=== PATIENT | female | born 1970 | race Caucasian/White ===

== ENCOUNTER 2024-12-22 08:54 | Outpatient (POV) | payer OTHER, SELFPAY ==
[2024-12-22 08:59] VITALS: BP 150/101; PULSE 77; RESP 18; O2SAT 99; BMI 24.2
--- NOTE | 2024-12-22 10:02 | A.OFFVIS_ITS ---
HPI Data of Consult Patient: new to practice Consult date: 12/22/24 Requesting Physician: Allyn Hernandez APRN Primary Care Provider: Musa Lange MD Consult Narrative Reason for consult: Low back pain, left hip pain, left knee pain History of present illness: Ms. MALAVE is a 54 year old female who presents today as a new patient. She is a referral from [facility]. Today she rates her pain a 5 out of 10. She states that all of this really started around June 2024 where she tweaked her back at work. She states that the pain was severe and that it was throughout her low back along the left side radiating down her left hip and down into her left knee. Patient states the pain was constant and severe enough it would wake her up in the middle of the night and she could not lay flat on her back. Patient states that she did try oral medications, heat and ice and topicals with minimal relief. She went to physical therapy and chiropractor therapy however both of these caused worsening symptoms. She was then seen by neurosurgery who was not recommending surgical intervention however did want conservative treatment such as injections. Patient states that she has not had any back surgery or issues before this injury. She states that she has never had any problems with her left knee either. She states that it is a aching, throbbing sensation with numbness and tingling into and below her left knee. She states the pain interferes with her ability perform activities of daily living such as cooking and cleaning. Patient is very active and would like any help we may be able to provide. She states that the neurosurgeon did prescribe her meloxicam and gabapentin and that has helped some. Patient states in the past she has had a right wrist injection but denies ever trying any back injections. Her Nicolas has been reviewed and is appropriate. CC: Allyn Hernandez APRN [facility] Disclaimer: The information contained in this section may have been updated after the patient was seen, as this information can be updated by other users. Medical History (Updated 12/22/24 @ 10:11 by Allyn Hernandez APRN) Carpal tunnel syndrome BRIANA (obstructive sleep apnea) HLD (hyperlipidemia) Migraines Left ventricular hypertrophy Hypersomnia HTN (hypertension) Depression Anxiety Surgical History (Updated 12/22/24 @ 09:50 by Sofia Andujar RN) [place] teeth extracted Hx of tonsillectomy Family History (Updated 12/22/24 @ 09:48 by Sofia Andujar RN) Other Unknown family medical history Social History (Updated 12/22/24 @ 09:59 by Sofia Andujar, RN) Smoking Status: Never smoker alcohol intake: never current occupational status: employed Travel in the last 8 weeks: None Contact w/someone who lives/traveled outside [place] past 30 days?: No Exposure to someone with infectious disease in past 14 days?: No Do you have a fever (greater than 100.4 F or 38 C)?: No Have you tested positive for COVID-19: No Exposed to someone with COVID-19 in past 14 days?: No Do you have a sore throat?: No Do you have a cough?: No Do you have any weakness?: No Are you experiencing any nausea/vomitting?: No Do you have any diarrhea?: No Are you experiencing any unusual bleeding?: No Do you have any muscle aches/pain?: No Do you have any abdominal pain?: No Are you experiencing loss of taste or smell?: No Review of Systems Review of Systems Review of systems:: pertinent systems reviewed and negative unless documented below Review of systems (narrative): Review of Systems: General: No recent weight changes, no fever, no sleep disturbances Respiratory: No cough, no shortness of air, no recurring pulmonary infections Cardiovascular/peripheral vascular: No chest pain, no palpitations, no edema, no shortness of breath Gastrointestinal: No new onset incontinence, normal bowel movements reported Genitourinary: No new onset incontinence Musculoskeletal: Low back pain, left hip pain, left knee pain Psychiatric: [Normal mood/affect] Neurological: [Denies weakness in extremities], [denies balance issues] Meds Home Medications and Allergies New Prescriptions to Start Prescriptions: Objective Narrative: Physical Exam: General: Alert and oriented x3, no acute distress, pleasant and cooperative Lungs: Respirations even and unlabored, symmetrical chest expansion Eyes: PERRL Musculoskeletal: Flexion and extension of lumbar [spine] somewhat guarded secondary to pain, [antalgic gait noted] positive left leg raise, decreased sensation to the left lower extremity and decreased reflexes Neurological: Speech clear, no gross sensory deficit Additional findings Additional findings: [facility] an open MRI November 23, 2024 Lumbar MRI Findings: Numbering assumes 5 lumbar type vertebral bodies, last fully formed disc space on series 8001 image 28 is labeled L5-S1. Cord and epidural space: Spinal cord terminates at L1 and has normal signal. Nerve roots of the cauda equina are normal in morphology. Vertebral column: Localized sequences suggest a shallow convex right lower curve. There is straightening of the usual lumbar lordosis. Vertebral body and facet alignment is anatomic. Vertebral heights are maintained. No concerning marrow signal. Multilevel disc desiccation T12-L1: Maintained disc height without herniation or bulge. No narrowing. Mild to moderate facet arthrosis L1-L2: Moderate disc height loss and asymmetric left disc bulge results in mild bilateral foraminal stenosis. No significant canal stenosis. Mild facet arthrosis L2-L3: Moderate disc height loss and asymmetric left disc osteophyte complex results in mild right and moderate left foraminal stenosis. No significant canal stenosis. Mild facet arthrosis L3-L4: Moderate disc height loss and asymmetric left disc osteophyte complex with superimposed left subarticular disc protrusion contributes to left lateral recess narrowing with contact and posterior displacement of the descending left L4 nerve root, there is mild right and mild-moderate left foraminal stenosis. No canal stenosis. Mild facet arthrosis. L4-L5: Moderate disc height loss and asymmetric right disc osteophyte complex with superimposed caudally migrated right subarticular disc extrusion to the L5 pedicular level with contact of the descending right L5 nerve root and moderate right and mild left foraminal stenosis, but no significant spinal canal stenosis. Mild to moderate facet arthrosis. There is superimposed left subarticular disc protrusion with contact, however no displacement of the descending left nerve root L5-S1: Moderate disc height loss and symmetric disc osteophyte complex results in moderate bilateral foraminal stenosis with no significant spinal canal stenosis. Mild to moderate facet arthrosis. mild chronic and symmetric paraspinal muscle trophy. Visualized paravertebral and retroperitoneal soft tissue structures are within normal limits Assessment and Plan *Assessment and plan (1) Degenerative disc disease: Status: Acute Category: Medical (2) Lumbar radiculopathy: Status: Acute Category: Medical Code(s): M54.16 - Radiculopathy, lumbar region (3) Left leg pain: Status: Acute Category: Medical Code(s): M79.605 - Pain in left leg (4) Lumbar nerve root impingement: Status: Acute Category: Medical Code(s): M54.16 - Radiculopathy, lumbar region Plan Patient is experiencing worsening pain in her low back with numbness and tingling into her left lower leg. Patient did have limited range of motion of her lumbar spine with a positive leg raise with decreased sensation and decreased reflexes along the left side. I did discuss with patient that I do believe they would benefit from a left transforaminal epidural steroid injection. Risk and benefits were discussed with patient and the patient would like to proceed forward with this plan of care. Patient is not on any blood thinners. Patient has tried and failed conservative therapy including continued at home stretching exercise for longer than 12 weeks. Patient has not ever had any injections in her low back in the past. Patient has been to physical therapy and chiropractor therapy. I will order the patient a compounded cream and send in a 2-week dose of baclofen 5 mg 3 times daily as well as schedule her for a left transforaminal epidural steroid injection L3-L4 and L4-L5 under fluoroscopy. Patient does have nerve root impingement at both of these levels. Patient has been instructed to contact the clinic with any concerns before the next appointment. Dr. Gomez has reviewed this note and agrees with this plan of care. This note was dictated using voice recognition software and make contain errors or omissions. All injections are used with Lidocaine, Bupivacaine and Depo Medrol. Occasionally urine drug screen is needed to verify patient's compliance with our office pain contract. This is ordered based off specific treatments related to chronic pain with the potential to abuse certain medications.
== END 2024-12-22 23:59 | disposition home or self-care (01) ==
PROVIDERS: PCP Pediatrics; Visit Provider Nurse Practitioner Family
DX: M51.16 Intervertebral disc disorders with radiculopathy, lumbar region (principal); M79.605 Pain in left leg; Z73.89 Other problems related to life management difficulty
CPT/HCPCS: 99202; G0463

== ENCOUNTER 2025-01-10 14:13 | Day surgery (SDC) | payer OTHER, SELFPAY ==
[2025-01-10 14:24] VITALS: BP 144/94; PULSE 74; RESP 16; TEMP 36.8; O2SAT 98; BMI 24.2
--- NOTE | 2025-01-10 14:46 | EXP.PAIN.PRO ---
Procedure Date: 01/10/25 Time: 14:45 Anesthesiologist:: Marcos Nava CRNA Complications:: None Pre-procedure Diagnosis:: Degenerative disc lumbar spine multilevels. Lumbar radiculopathy. Lumbar disc bulge L3-4, L4-5 Post-procedure Diagnosis:: Same. Indications for Procedure:: Patient is a very pleasant 54-year-old female who comes our clinic today for a left L3-4 and L4-5 transforaminal epidural steroid injection. Patient describes left hip and leg pain as constant, dull, aching. Pain is worse in the mornings. Patient states by the afternoon it seems to work itself out. Also, patient states it has been better since starting gabapentin. Procedure Details:: Details of the procedure explained to the patient. The patient was taken to procedure room placed in the prone position. The area over the lumbar spine was cleansed using chlorhexidine as a cleansing solution. Using fluoroscopy guidance markers were placed over the left border of the L3-4, L4-5 vertebral body. At each marker the skin and subcutaneous tissue was anesthetized using 1% lidocaine and a 25-gauge needle. At this time using fluoroscopy guidance 3 and half inch 22-gauge spinal needle was used to access the upper one third of the L3-4 and L4-5 foramen. Using fluoroscopy guidance in the lateral position needle position was confirmed using 0.5 mL of contrast dye. Good spread was noted in the epidural space at each level. After negative aspiration 2 mL of 1% lidocaine and 40 mg of Depo-Medrol was injected at each level. Patient tolerated procedure without difficulty. There are no complications. Plan and Disposition:: Patient was discharged without incident.
[2025-01-10 14:54] VITALS: BP 138/97; PULSE 65; RESP 16; TEMP 36.8; O2SAT 99
[2025-01-10 15:25] VITALS: BP 145/87; PULSE 69; RESP 18; O2SAT 94
[2025-01-10] MEDS: methylPREDNISolone ACETATE 80MG/ML VIAL 80 MG (15:25)
[2025-01-10 15:26] VITALS: BP 145/87; PULSE 69; RESP 18; O2SAT 94
== END 2025-01-10 14:54 | disposition home or self-care (01) ==
PROVIDERS: PCP Pediatrics; Visit Provider Nurse Anesthetist, Certified Registered
DX: M51.16 Intervertebral disc disorders with radiculopathy, lumbar region (principal)
CPT/HCPCS: 64483; 64484; J1010

== ENCOUNTER 2025-01-26 14:44 | Outpatient (POV) | payer OTHER, SELFPAY ==
--- NOTE | 2025-01-26 14:53 | A.OFFVIS_ITS ---
[facility] Disclaimer: The information contained in this section may have been updated after the patient was seen, as this information can be updated by other users. Medical History Carpal tunnel syndrome BRIANA (obstructive sleep apnea) HLD (hyperlipidemia) Migraines Left ventricular hypertrophy Hypersomnia HTN (hypertension) Depression Anxiety Surgical History [place] teeth extracted Hx of tonsillectomy Family History Other Unknown family medical history Social History Smoking Status: Never smoker alcohol intake: never current occupational status: employed Travel in the last 8 weeks: None PM Subjective & Objective Subjective Subjective:: Patient is a pleasant 54-year-old female who presents today for follow-up of left L3-L4 and L4-L5 transforaminal epidural on 01/10/2025. Today she rates her pain a 0 out of 10. She states that she really did not feel like she noticed a huge difference with her pain. Patient states her pain is all relatively in the morning and does ease down by the afternoons. Patient was being prescribed meloxicam and gabapentin from outside providers. She does state that she no longer has any more of the meloxicam but that she typically would take it at night along with her gabapentin and that she frequently felt like she still had significant pain in the morning. At our last visit we did prescribe baclofen however she states that she felt like she had the worst hot flashes ever and discontinued this. Patient did get the compounded cream however states that she always forgets to try it so really has not been able to see if it does improve any of her symptoms. She denies any other changes. Her Nicolas has been r eviewed and is appropriate. Review of Systems: General: No recent weight changes, no fever, no sleep disturbances Respiratory: No cough, no shortness of air, no recurring pulmonary infections Cardiovascular/peripheral vascular: No chest pain, no palpitations, no edema, no shortness of breath Gastrointestinal: No new onset incontinence, normal bowel movements reported Genitourinary: No new onset incontinence Musculoskeletal: Low back pain, left leg pain Psychiatric: [Normal mood/affect] Neurological: [Denies weakness in extremities], [denies balance issues] Pain at rest (0-10 scale): 0 Objective Objective:: Physical Exam: General: Alert and oriented x3, no acute distress, pleasant and cooperative Lungs: Respirations even and unlabored, symmetrical chest expansion Eyes: PERRL Musculoskeletal: Flexion and extension of lumbar [spine] somewhat guarded secondary to pain, [antalgic gait noted] Neurological: Speech clear, no gross sensory deficit Has patient had previous pain injection?: Yes Percent improvement in pain since last injection: Minimal Conservative treatment options previously tried: Home exercise plan Length of treatment: Longer than 12 weeks Meds Home Medications and Allergies Home Medications ?Medication ?Instructions ?Recorded ?Confirmed ?Type gabapentin 300 mg tablet 300 mg PO TID 12/22/24 01/10/25 History losartan 50 mg-hydrochlorothiazide 1 tab PO DAILY 12/22/24 01/10/25 History 12.5 mg tablet meloxicam 15 mg tablet 15 mg PO DAILY 12/22/24 01/10/25 History sumatriptan succinate 100 mg 100 mg PO Q2H PRN MIGRAINES 12/22/24 01/10/25 History tablet (Imitrex) New Prescriptions to Start Prescriptions: Allergies Allergy/AdvReac Type Severity Reaction Status Date / Time amoxicillin Allergy Unknown Verified 01/10/25 14:34 allergy reaction Assessment and Plan *Assessment and plan (1) Lumbar nerve root impingement: Status: Acute Category: Medical Code(s): M54.16 - Radiculopathy, lumbar region (2) Left leg pain: Status: Acute Category: Medical Code(s): M79.605 - Pain in left leg (3) Lumbar radiculopathy: Status: Acute Category: Medical Code(s): M54.16 - Radiculopathy, lumbar region (4) Degenerative disc disease: Status: Acute Category: Medical Plan I did discuss with the patient that I will send in a refill of her meloxicam. I did discuss with her that it may be more beneficial to take this first thing when she wakes up and see if this does help with her overall pain and stiffness. Patient did state in the past she has gotten improvement with acupuncture. I will order physical therapy evaluation and treatments of her low back and left leg symptoms specifically with the addition of acupuncture. Patient will return to clinic in 1 month. Patient did deny any heart or kidney issues. She states that at 1 point she did have something on an EKG that they ended up sending her to a licensed final expense agents for and the echo was all normal and she has never had to go b ack. Patient was counseled to discontinue all other NSAIDs while taking the meloxicam and to take it with food to minimize GI upset. Patient acknowledges understanding. Patient has been instructed to contact the clinic with any concerns before the next appointment. Dr. Gomez has reviewed this note and agrees with this plan of care. This note was dictated using voice recognition software and make contain errors or omissions. All injections are used with Lidocaine, Bupivacaine and Depo Medrol. Occasionally urine drug screen is needed to verify patient's compliance with our office pain contract. This is ordered based off specific treatments related to chronic pain with the potential to abuse certain medications.
[2025-01-26 15:32] VITALS: BP 135/85; PULSE 80; RESP 16; O2SAT 97; BMI 24.2
== END 2025-01-26 23:59 | disposition home or self-care (01) ==
PROVIDERS: PCP Pediatrics; Visit Provider Nurse Practitioner Family
DX: M54.16 Radiculopathy, lumbar region (principal); M79.605 Pain in left leg
CPT/HCPCS: 99212; G0463

== ENCOUNTER 2025-02-06 15:59 | Outpatient (RCR) | payer OTHER, SELFPAY | END 2025-02-06 23:59 | disposition home or self-care (01) | LOC: PT 15:59 | PROVIDERS: PCP Pediatrics; Visit Provider Nurse Practitioner Family | DX: M54.16 Radiculopathy, lumbar region (principal); M79.605 Pain in left leg | CPT/HCPCS: 97110; 97163 ==

== ENCOUNTER 2025-02-22 14:53 | Outpatient (POV) | payer OTHER, SELFPAY ==
[2025-02-22 15:18] VITALS: BP 134/74; PULSE 70; RESP 14; O2SAT 99; BMI 24.2
--- NOTE | 2025-02-22 15:18 | EXP.PAIN.SOA ---
[facility] Disclaimer: The information contained in this section may have been updated after the patient was seen, as this information can be updated by other users. Medical History Carpal tunnel syndrome BRIANA (obstructive sleep apnea) HLD (hyperlipidemia) Migraines Left ventricular hypertrophy Hypersomnia HTN (hypertension) Depression Anxiety Surgical History [place] teeth extracted Hx of tonsillectomy Family History Other Unknown family medical history Social History Smoking Status: Never smoker alcohol intake: never current occupational status: other Travel in the last 8 weeks?: None PM Subjective & Objective Subjective Subjective:: Patient is a pleasant 54-year-old female who presents today for follow-up. Today she rates her pain a 3 out of 10. She denies any new falls or injuries. Patient does state that she still has the same pain there in her low back that does radiate down just the left extremity to a little bit below her knee. Patient did previously have a left transforaminal epidural steroid injection in December however did not notice a big difference of her pain. Patient does state that she is still seeing physical therapy and she has had 3 sessions and currently they are working on core exercises. Patient states she really does not notice much improvement with the symptoms however feels like after the visit she is in worse pain. She does state that she has tried the needling and cupping at the last visit but did not notice any changes whatsoever. Patient is currently managed with meloxicam 15 mg daily however does not really feel like she has noticed much improvement with this either. Patient is managed with compounded cream as well and denies any side effects. Patient's Nicolas has been reviewed and is appropriate. Review of Systems: General: No recent weight changes, no fever, no sleep disturbances Respiratory: No cough, no shortness of air, no recurring pulmonary infections Cardiovascular/peripheral vascular: No chest pain, no palpitations, no edema, no shortness of breath Gastrointestinal: No new onset incontinence, normal bowel movements reported Genitourinary: No new onset incontinence Musculoskeletal: Low back pain, left leg pain Psychiatric: [Normal mood/affect] Neurological: [Denies weakness in extremities], [denies balance issues] Pain at rest (0-10 scale): 3 Objective Objective:: Physical Exam: General: Alert and oriented x3, no acute distress, pleasant and cooperative Lungs: Respirations even and unlabored, symmetrical chest expansion Eyes: PERRL Musculoskeletal: Flexion and extension of lumbar [spine] somewhat guarded secondary to pain Neurological: Speech clear, no gross sensory deficit Has patient had previous pain injection?: No Conservative treatment options previously tried: Home exercise plan Length of treatment: Longer than 12 weeks Meds Home Medications and Allergies Home Medications ?Medication ?Instructions ?Recorded ?Confirmed ?Type gabapentin 300 mg tablet 300 mg PO TID 12/22/24 01/26/25 History losartan 50 mg-hydrochlorothiazide 1 tab PO DAILY 12/22/24 01/26/25 History 12.5 mg tablet sumatriptan succinate 100 mg 100 mg PO Q2H PRN MIGRAINES 12/22/24 01/26/25 History tablet (Imitrex) meloxicam 15 mg tablet 15 mg PO DAILY #30 tabs 01/26/25 Rx New Prescriptions to Start Prescriptions: Allergies Allergy/AdvReac Type Severity Reaction Status Date / Time amoxicillin Allergy Unknown Verified 01/10/25 14:34 allergy reaction Assessment and Plan *Assessment and plan (1) Left leg pain: Status: Acute Category: Medical Code(s): M79.605 - Pain in left leg (2) Lumbar radiculopathy: Status: Acute Category: Medical Code(s): M54.16 - Radiculopathy, lumbar region (3) Degenerative disc disease: Status: Acute Category: Medical Plan I did discuss with the patient if she does not feel like the meloxicam is doing as much that we can always try different anti-inflammatories. Patient denies ever trying diclofenac or Celebrex. I will send in a 2-week dose of diclofenac 75 mg twice daily. She was counseled to discontinue all of her other NSAIDs while taking this medication. Patient was also counseled that there is the option of always trying a straightforward lumbar epidural to see if she does better with this option. We will continue to follow-up with her in future regarding this. Patient will return to clinic in 6 weeks for reevaluation of symptoms and plan of care. Patient has been instructed to contact the clinic with any concerns before the next appointment. Dr. Gomez has reviewed this note and agrees with this plan of care. This note was dictated using voice recognition software and make contain errors or omissions. All injections are used with Lidocaine, Bupivacaine and dexamethasone. Occasionally urine drug screen is needed to verify patient's compliance with our office pain contract. This is ordered based off specific treatments related to chronic pain with the potential to abuse certain medications.
== END 2025-02-22 23:59 | disposition home or self-care (01) ==
PROVIDERS: PCP Internal Medicine; Visit Provider Nurse Practitioner Family
DX: M54.16 Radiculopathy, lumbar region (principal); M79.605 Pain in left leg
CPT/HCPCS: 99212; G0463

== ENCOUNTER 2025-03-01 16:00 | Outpatient (RCR) | payer OTHER, SELFPAY | END 2025-03-01 23:59 | disposition home or self-care (01) | LOC: PT 16:00 | PROVIDERS: PCP Pediatrics; Visit Provider Nurse Practitioner Family | DX: M54.16 Radiculopathy, lumbar region (principal); M79.605 Pain in left leg | CPT/HCPCS: 20560; 97014; 97110; 97140; G0283 ==

== ENCOUNTER 2025-04-19 14:16 | Outpatient (POV) | payer OTHER, SELFPAY ==
--- NOTE | 2025-04-19 14:26 | EXP.PAIN.SOA ---
[facility] Disclaimer: The information contained in this section may have been updated after the patient was seen, as this information can be updated by other users. Medical History Carpal tunnel syndrome BRIANA (obstructive sleep apnea) HLD (hyperlipidemia) Migraines Left ventricular hypertrophy Hypersomnia HTN (hypertension) Depression Anxiety Surgical History [place] teeth extracted Hx of tonsillectomy Family History Other Unknown family medical history Social History Smoking Status: Never smoker alcohol intake: never current occupational status: other Travel in the last 8 weeks?: None PM Subjective & Objective Subjective Subjective:: Patient is a very pleasant 54-year-old female who presents today for 1 month follow-up. Today she rates her pain a 0 out of 10. She denies any new changes from her last appointment. She states the diclofenac has been doing wonderful. Patient states she has had very minimal pain with this medication. She denies any side effects. Her Nicolas has been reviewed and is appropriate. Review of Systems: General: No recent weight changes, no fever, no sleep disturbances Respiratory: No cough, no shortness of air, no recurring pulmonary infections Cardiovascular/peripheral vascular: No chest pain, no palpitations, no edema, no shortness of breath Gastrointestinal: No new onset incontinence, normal bowel movements reported Genitourinary: No new onset incontinence Musculoskeletal: Low back pain Psychiatric: [Normal mood/affect] Neurological: [Denies weakness in extremities], [denies balance issues] Pain at rest (0-10 scale): 0 Objective Objective:: Physical Exam: General: Alert and oriented x3, no acute distress, pleasant and cooperative Lungs: Respirations even and unlabored, symmetrical chest expansion Eyes: PERRL Musculoskeletal: Flexion and extension of lumbar [spine] within normal limits Neurological: Speech clear, no gross sensory deficit Has patient had previous pain injection?: No Conservative treatment options previously tried: Home exercise plan Length of treatment: Longer than 12 weeks Meds Home Medications and Allergies Home Medications ?Medication ?Instructions ?Recorded ?Confirmed ?Type gabapentin 300 mg tablet 300 mg PO TID 12/22/24 02/22/25 History losartan 50 mg-hydrochlorothiazide 1 tab PO DAILY 12/22/24 02/22/25 History 12.5 mg tablet sumatriptan succinate 100 mg 100 mg PO Q2H PRN MIGRAINES 12/22/24 02/22/25 History tablet (Imitrex) meloxicam 15 mg tablet 15 mg PO DAILY #30 tabs 01/26/25 02/22/25 Rx diclofenac sodium 75 mg 75 mg PO BID #28 tabs 02/22/25 Rx tablet,delayed release diclofenac sodium 75 mg 75 mg PO BID #60 tabs 03/08/25 Rx tablet,delayed release New Prescriptions to Start Prescriptions: Allergies Allergy/AdvReac Type Severity Reaction Status Date / Time amoxicillin Allergy Unknown Verified 01/10/25 14:34 allergy reaction Assessment and Plan *Assessment and plan (1) Degenerative disc disease: Status: Acute Category: Medical (2) Lumbar radiculopathy: Status: Acute Category: Medical Code(s): M54.16 - Radiculopathy, lumbar region Plan Patient has done really well with the diclofenac. I have discussed with the patient that I will send in a 3-month supply of this medication. She was also counseled at that upcoming visit if she is still doing wonderful with this medication we will make it at 6-month follow-up from thereon. Patient agrees with this plan of care. She was also counseled that if she needs us sooner to feel free to call us and we will always move up her appointment. Patient will return to clinic in 3 months for reevaluation of symptoms and plan of care. Patient has been instructed to contact the clinic with any concerns before the next appointment. Dr. Gomez has reviewed this note and agrees with this plan of care. This note was dictated using voice recognition software and make contain errors or omissions. All injections are used with Lidocaine, Bupivacaine and dexamethasone. Occasionally urine drug screen is needed to verify patient's compliance with our office pain contract. This is ordered based off specific treatments related to chronic pain with the potential to abuse certain medications.
[2025-04-19 14:37] VITALS: BP 121/71; PULSE 77; RESP 18; O2SAT 96; BMI 24.2
== END 2025-04-19 23:59 | disposition home or self-care (01) ==
PROVIDERS: PCP Pediatrics; Visit Provider Nurse Practitioner Family
DX: M54.16 Radiculopathy, lumbar region (principal); Z79.1 Long term (current) use of non-steroidal anti-inflammatories (NSAID)
CPT/HCPCS: 99212; G0463